=== PATIENT | male | born 1995 | race Caucasian/White ===

== ENCOUNTER 2016-05-01 21:09 | Emergency (ER) | payer SELFPAY ==
[2016-05-01] MEDS ORDERED: ONDANSETRON HCL 4 MG/2 ML VIAL ONE (21:35)
[2016-05-01 21:55] LABS: BLOOD UREA NITROGEN 18 mg/dL (9-20); CALCIUM 9.3 mg/dL (8.4-10.2); CHLORIDE 102 mmol/L (98-107); CREATININE 0.9 mg/dL (0.7-1.3); EST GLOMERULAR FILTRATION RATE > 60 mL/min; GLUCOSE 111 mg/dL (70-100); SODIUM 139 mmol/L (137-145)
--- NOTE | 2016-05-01 22:59 | ER PHYSICIAN DOCUMENTATION ---
Physician Documentation [facility] Name:Lazaro Perez Age:20 yrs Sex:Male :1995 Arrival Date:05/01/2016 Time:21:09 Bed3 Private MD: Damien Lund Disposition: 05/01 22:45 Chart complete. cd Disposition: 05/01/16 22:51 Discharged to Home/Self Care. Impression: Gastroenteritis vs. Food Poisoning, Vomiting - Dehydration. - Condition is Good. - Discharge Instructions: DEHYDRATION (6y-Adult), Dysentery - FOOD POISONING vs Gastro-Ent (6yr - Adult). - Medical Reconciliation form form. - Follow up: Private Physician; When: 7 - 10 days; Reason: Recheck today's complaints, Continuance of care. - Problem is new. - Symptoms are resolved. - Notes: Take Zofran 4mg under your tongue every 4- 6 hours as needed for nausea or vomiting Drink 2 - 3 quarts of water or Gatorade every day for 2 - 3 days... Slowly advance your diet... No Cannibis or alcohol for 3 days.... HPI: 21:15 This 20 yrs old Male presents to ER via Walk In with complaints of cd Nausea/Vomiting/ Diarrhea. 21:15 The patient presents to the emergency department with nausea, that is severe, with cd vomiting, 5 times since the onset of symptoms, described as clear fluid, with diarrhea, 5 times since the onset of symptoms, described as watery, without any complaints of abdominal pain. Onset: The symptom(s)/episode began/occurred acutely, today. Possible causes: bad food exposure, possibly bad home food, possibly let sit out too long, possibly undercooked. The symptoms are aggravated by food , The symptoms are alleviated by nothing. Associated signs and symptoms: Pertinent positives: anorexia, diarrhea, nausea, vomiting, Pertinent negatives: abdominal pain, fever. The patient has not experienced similar symptoms in the past. Patient reports having Cannabis edible, one dose, this morning at 10:00 AM. He also had two beers this afternoon, but none this evening. Historical: - Allergies: No known drug Allergies; - Home Meds: 1. None - PMHx: None; - PSHx: None; - Tetanus: < 10 years. - Ebola Screening: : Patient negative for fever greater than or equal to 101.5 degrees Fahrenheit, and additional compatible Ebola Virus Disease symptoms. - Immunization history: Flu Vaccine < 1 year. - Social history: Smoking status: Patient states was never smoker of tobacco. ROS: 21:35 Cardiovascular: Negative for chest pain, palpitations, edema and pleuritic pain. cd 21:35 Respiratory: Negative for shortness of breath, dyspnea on exertion, cough, sputum cd production, wheezing, hemoptysis and pleuritic chest pain. 21:35 Constitutional: Positive for poor PO intake, Negative for chills, fever. 21:35 Abdomen/GI: Positive for nausea, vomiting, diarrhea, anorexia, Negative for abdominal pain, abdominal distension, hematemesis, black/tarry stool, rectal bleeding. 21:35 All other systems are negative. Exam: ENT: Nares patent. No nasal discharge, no septal abnormalities noted. Tympanic membranes are normal and external auditory canals are clear. Oropharynx with no redness, swelling, or masses, exudates, or evidence of obstruction, uvula midline. Mucous membranes moist. Back: No spinal tenderness. No costovertebral tenderness. Full range of motion. 21:35 MS/ Extremity: Pulses equal, no cyanosis. Neurovascular intact. Full, normal range cd of motion. 21:35 Constitutional: The patient appears alert, awake, non-diaphoretic, non-toxic, well developed, well nourished, in obvious distress, moderately distressed. 21:35 Cardiovascular: Rate: normal, Rhythm: regular, Pulses: no pulse deficits are appreciated, Heart sounds: normal. 21:35 Respiratory: Exam negative for acute changes. 21:35 Abdomen/GI: Inspection: abdomen appears normal, Bowel sounds: normal, active, Palpation: abdomen is soft and non-tender, rebound tenderness, is not appreciated, voluntary guarding, is not appreciated, involuntary guarding, is not appreciated, no appreciated organomegaly, Indicators: McBurney's point is not tender, Blanco's sign is negative. Vital Signs: 21:05 BP 137 / 80; Pulse 95; Resp 17; Temp 98.2; Pulse Ox 95% on R/A; Weight 81.65 kg; Height rh 5 ft. 9 in. (175.26 cm); Pain 0/10; 22:24 BP 142 / 69; Pulse 88; Resp 16; Pulse Ox 98% on R/A; Pain 0/10; rh 21:05 Body Mass Index 26.58 (81.65 kg, 175.26 cm) rh MDM: 21:05 Data interpreted: Pulse oximetry: on room air is 98 %. Interpretation: normal. cd 21:20 Data reviewed: vital signs, nurses notes, old medical records, lab test result(s), cd electrolytes, and as a result, I will continue to observe the patient, administer IV fluids, NS bolus, NS maintenence, and Zofran. 21:24 Patient medically screened. cd 21:35 Differential diagnosis: diverticulitis, viral gastroenteritis, gastroenteritis, cd Dehydration. 22:45 Counseling: I had a detailed discussion with the patient and/or guardian regarding: the cd historical points, exam findings, and any diagnostic results supporting the discharge/admit diagnosis, lab results, the need for outpatient follow up, for a recheck, with the patient's primary care provider, to return to the emergency department if symptoms worsen or persist or if there are any questions or concerns that arise at home. Response to treatment: the patient's symptoms have markedly improved after treatment, the patient's condition has returned to base line, the patient is now symptom free, patient is well hydrated. and as a result, I will discharge patient. 05/01 21:56 Order name: BASIC METABOLIC PANEL; Complete Time: 22:51 EDMS 05/01 22:51 Interpretation: Normal. cd 05/01 21:25 Order name: Accucheck; Complete Time: 21:29 cd Dispensed Medications: 20:27 Drug: NS 0.9% 2000 ml; Route: IV; Rate: bolus; Site: left antecubital; rh 22:24 Follow up: IV Status: Completed infusion; IV Intake: 2000ml rh 21:29 Drug: Zofran 4 mg; Route: IVP; Infused Over: 2 mins; Site: left antecubital; rh 21:34 Follow up: Response: Nausea is decreased rh 22:58 Drug: Zofran 1 tablet; Route: PO; rh 22:58 Follow up: Response: Pharmacy closed - take home med pack Point of Care Testing: Blood Glucose: 21:33 Blood Glucose: 111 mg/dL; rh Ranges: Critical Glucose Levels:Adult <50 mg/dl or >400 mg/dl <40 mg/dl or >180 mg/dl Signatures: Damien Dsouza MD MD cd Eboni Nix
--- NOTE | 2016-05-01 22:59 | ER NURSING DOCUMENTATION ---
Nurse's Notes [facility] Name:Lazaro Perez Age:20 yrs Sex:Male :1995 Arrival Date:05/01/2016 Time:21:09 Bed3 Private MD: Diagnosis:Gastroenteritis vs. Food Poisoning;Vomiting - Dehydration Presentation: 05/01 21:12 Acuity: NIDIA 3 rh 21:29 Presenting complaint: Patient states: Pt has been feeling ill, nauseated and headache rh for 2 days. Pt tonight vomited 5-6 times. Some diarrhea. Transition of care: Home. 21:29 Method Of Arrival: Walk In Triage Assessment: 21:30 General: Appears in no apparent distress, Behavior is cooperative. Pain: Denies pain. rh EENT: Oral mucosa is dry. Neuro: Level of Consciousness is awake, alert, obeys commands, Oriented to person, place, time, event. Cardiovascular: Capillary refill < 3 seconds. Respiratory: Airway is patent Respiratory effort is even, unlabored. GI: Abdomen is non- distended Bowel sounds present X 4 quads. Abd is soft and non tender Reports diarrhea, nausea, vomiting. : No deficits noted. Derm: Skin is intact, is healthy with good turgor, Skin is pink, warm & dry. Musculoskeletal: Circulation, motion, and sensation intact Range of motion intact in all extremities. Historical: - Allergies: No known drug Allergies; - Home Meds: 1. None - PMHx: None; - PSHx: None; - Tetanus: < 10 years. - Ebola Screening: : Patient negative for fever greater than or equal to 101.5 degrees Fahrenheit, and additional compatible Ebola Virus Disease symptoms. - Immunization history: Flu Vaccine < 1 year. - Social history: Smoking status: Patient states was never smoker of tobacco. Screenin:32 Infectious Disease Risk None. Abuse screen: Denies threats or abuse. Denies injuries rh from another. Nutritional screening: No deficits noted. Assessment: 21:32 See Triage Assessment done by same RN. Vital Signs: 21:05 BP 137 / 80; Pulse 95; Resp 17; Temp 98.2; Pulse Ox 95% on R/A; Weight 81.65 kg; Height rh 5 ft. 9 in. (175.26 cm); Pain 0/10; 22:24 BP 142 / 69; Pulse 88; Resp 16; Pulse Ox 98% on R/A; Pain 0/10; rh 21:05 Body Mass Index 26.58 (81.65 kg, 175.26 cm) ED Course: 21:00 Notified ED Physician of patient's arrival and chief complaint. Dr. Dsouza notified. rh 21:10 Patient arrived in ED. ma1 21:12 Christiano Ybarra RN is Primary Nurse. tg 21:12 Triage completed. rh 21:18 Inserted peripheral IV: 20 gauge in left antecubital area and blood collected. rh 21:24 Damien Dsouza MD is Attending Physician. cd 21:33 Valuables Remains with patient Patient has correct armband on for positive rh identification. Bed in low position. Call light in reach. Side rails up X 1. 22:23 Diet: Patient given water. Tolerated well. rh Administered Medications: 20:27 Drug: NS 0.9% 2000 ml; Route: IV; Rate: bolus; Site: left antecubital; rh 22:24 Follow up: IV Status: Completed infusion; IV Intake: 2000ml rh 21:29 Drug: Zofran 4 mg; Route: IVP; Infused Over: 2 mins; Site: left antecubital; rh 21:34 Follow up: Response: Nausea is decreased rh 22:58 Drug: Zofran 1 tablet; Route: PO; rh 22:58 Follow up: Response: Pharmacy closed - take home med pack Point of Care Testing: Blood Glucose: 21:33 Blood Glucose: 111 mg/dL; rh Ranges: Intake: 22:24 IV: 2000ml; Total: 2000ml. Outcome: 22:51 Discharge ordered by . cd 22:57 Discharged to home ambulatory, with friend. rh 22:57 Condition: improved 22:57 Discharge Assessment: Patient awake, alert and oriented x 3. No cognitive and/or functional deficits noted. Patient verbalized understanding of disposition instructions. 22:57 Discharge instructions given to patient, friend, Instructed on discharge instructions, follow up and referral plans. Demonstrated understanding of instructions. 22:57 IV D/Stanley 22:58 Patient left the ED. rh Signatures: Christiano Ybarra RN RN tg Daley, Chris, MD MD Eboni Nix Yesica Garcia ma
[2016-05-01] MEDS ORDERED: ONDANSETRON ODT PREPAC 4 MG TAB.RAPDIS PO ONE (23:04)
== END 2016-05-01 22:59 | disposition home or self-care (01) ==
LOC: ER 21:09
DX: E86.0 Dehydration (principal); R11.2 Nausea with vomiting, unspecified; R19.7 Diarrhea, unspecified; R51 Headache
CPT/HCPCS: 80048; 96361; 96374; 99284; J2405